=== PATIENT | female | born 1995 | race Caucasian/White ===

== ENCOUNTER 2022-09-01 09:50 | Emergency (ER) | payer OTHER ==
[2022-09-01] MEDS ORDERED: IBUPROFEN 600 MG TABLET (FP) PO ONE ×2 (10:36→11:30)
[2022-09-01] MEDS ORDERED: METOCLOPRAMIDE HCL INJECTION 10 MG/2 ML VIAL ONE (10:58)
[2022-09-01] MEDS ORDERED: METOCLOPRAMIDE HCL INJECTION 10 MG/2 ML VIAL IVPUSH ONE (11:04)
[2022-09-01] MEDS ORDERED: SODIUM CHLORIDE 0.9% 500 ML INFUS.BAG IV ONE (11:04)
[2022-09-01 11:10] VITALS: BMI 19.1
[2022-09-01 11:22] LABS: HCG,QUALITATIVE URINE Negative
[2022-09-01 11:52] LABS: EPI CELLS 9 /uL (0-25.1); HYALINE CASTS 4 /uL (0-3.1); URINE APPEARANCE CLEAR; URINE BACTERIA 6895 /uL (0-1359); URINE BILIRUBIN NEGATIVE (NEGATIVE); URINE COLOR YELLOW; URINE GLUCOSE (UA) NEGATIVE (NEGATIVE); URINE KETONE 1+ (NEGATIVE); URINE LEUK ESTERASE 1+ (NEGATIVE); URINE NITRITE POSITIVE (NEGATIVE); URINE PROTEIN 1+ (NEGATIVE); URINE RBC 102 /uL (0-23.9); URINE WBC 147 /uL (0-25.8)
[2022-09-01] MEDS ORDERED: CEFTRIAXONE 1,000 MG in DEXTROSE 5%-WATER - 50 ML IVPB ONE (12:00)
[2022-09-01] MEDS ORDERED: cefTRIAXone SODIUM 1 GM VIAL ONE (12:01)
[2022-09-01 12:07] LABS: BASO % 0.2 % (0-2.0); HEMATOCRIT 40.2 % (32.4-45.2); HEMOGLOBIN 13.1 GM/dL (10.7-15.3); LYMPH % 12.4 % (8-40); MCH 27.5 pg (25.7-33.7); MCHC 32.6 g/dl (32.0-36.0); MEAN CELL VOLUME 84.3 fl (80-96); MEAN PLT VOLUME 8.9 fl (7.5-11.1); MONO % 9.1 % (3.8-10.2); NEUT % 78.3 % (42.8-82.8); PLATELET COUNT 229 10^3/uL (134-434); RBC 4.77 M/mm3 (3.60-5.2); RDW 13.2 % (11.6-15.6); WHITE BLOOD COUNT 15.5 K/mm3 (4.0-10.0)
[2022-09-01 12:25] LABS: CALCIUM 9.2 mg/dL (8.5-10.1)
[2022-09-01 12:27] LABS: ALBUMIN 4.1 g/dl (3.4-5.0); BLOOD UREA NITROGEN 11.5 mg/dL (7-18); MAGNESIUM 1.9 mg/dL (1.8-2.4)
[2022-09-01 12:28] LABS: CREATININE 0.6 mg/dL (0.55-1.3)
[2022-09-01 12:30] LABS: BILIRUBIN,TOTAL 0.8 mg/dL (0.2-1); TOT PROT 8.1 g/dl (6.4-8.2)
[2022-09-01 12:40] VITALS: BP 108/55; PULSE 98; RESP 17; TEMP 99.8
== END 2022-09-01 13:04 | disposition home or self-care (01) ==
LOC: JER 09:50
PROC: 3E03329 Introduction of Other Anti-infective into Peripheral Vein, Percutaneous Approach (ICD-10-PCS; principal; 2022-09-01)
PROC: 3E033GC Introduction of Other Therapeutic Substance into Peripheral Vein, Percutaneous Approach (ICD-10-PCS; 2022-09-01)
DX: N39.0 Urinary tract infection, site not specified (principal)
CPT/HCPCS: 0241U-QW; 36415; 80053; 81003; 83735; 84703; 85025; 87086; 87186; 99284-25